=== PATIENT | female | born 1990 | race Caucasian/White ===

== ENCOUNTER 2018-07-06 19:53 | Emergency (ER) | payer OTHER ==
[2018-07-06 20:35] VITALS: BP 135/82
[2018-07-06] MEDS ORDERED: Lidocaine 2% VISCOUS* 15 ML UDC PO ONE (21:24)
[2018-07-06] MEDS ORDERED: Azithromycin TAB* 250 MG PO ONE (21:24)
--- NOTE | 2018-07-06 21:25 | UC ---
General HPI - HPI Summary HPI Summary: sore throat x 3 days R>L. - History of Current Complaint Chief Complaint: UCGeneralIllness Stated Complaint: SORE THROAT Time Seen by Provider: 07/06/18 21:20 Hx Obtained From: Patient Hx Last Menstrual Period: tubes tied Onset/Duration: Gradual Onset Timing: Constant Pain Intensity: 1 Aggravating: swallowing Associated Signs & Symptoms: Negative: Fever, SOB - Allergy/Home Medications Allergies/Adverse Reactions: Allergies Allergy/AdvReac Type Severity Reaction Status Date / Time amoxicillin Allergy Rash Verified 07/06/18 20:25 latex Allergy Rash Verified 07/06/18 20:25 Home Medications: Home Medications SUMAtriptan TAB* [Imitrex TAB*] 25 mg PO SEE INSTRUCTIONS PRN 07/06/18 [History Confirmed 07/06/18] Topiramate [Topamax] 50 mg PO DAILY PRN 07/06/18 [History Confirmed 07/06/18] PMH/Surg Hx/FS Hx/Imm Hx Neurological History: Migraine - Surgical History Surgical History: Yes Surgery Procedure, Year, and Place: , tonsilectomy, tubal - Family History Known Family History: Positive: Non-Contributory - Social History Alcohol Use: None Substance Use Type: None Smoking Status (MU): Current Every Day Smoker Type: Cigarettes Amount Used/How Often: 3-4 cigs/day Length of Time of Smoking/Using Tobacco: 13 yrs When Did the Patient Quit Smoking/Using Tobacco: 3 months ago Review of Systems All Other Systems Reviewed And Are Negative: Yes ENT: Positive: Sore Throat Physical Exam Triage Information Reviewed: Yes Appearance: Well-Appearing Vital Signs: Initial Vital Signs Temp 98.3 F 07/06/18 20:28 Pulse 92 07/06/18 20:28 Resp 18 07/06/18 20:28 BP 135/82 07/06/18 20:28 Pulse Ox 99 07/06/18 20:28 Vital Signs Reviewed: Yes Eyes: Positive: Conjunctiva Clear ENT: Positive: Pharyngeal erythema, TMs normal, Uvula midline. Negative: Nasal congestion, Nasal drainage, Trismus, Muffled voice, Hoarse voice Neck: Positive: Supple, Tenderness @ - peritonsilar nodes which are enlarged Respiratory: Positive: Lungs clear, Normal breath sounds Cardiovascular: Positive: RRR, No Murmur Abdomen Description: Positive: Nontender, No Organomegaly, Soft Bowel Sounds: Positive: Present Musculoskeletal: Positive: ROM Intact Neurological: Positive: Alert Psychological: Positive: Age Appropriate Behavior Skin Exam: Normal Course/Dx - Course Course Of Treatment: rapid strep= positive. - Differential Dx - Multi-Symptom Differential Diagnoses: Other - no concern for abscess. pcn allergy is a ? rash. will tx with zithromax - Diagnoses Provider Diagnosis: Strep throat Discharge - Sign-Out/Discharge Documenting (check all that apply): Patient Departure All imaging exams completed and their final reports reviewed: No Studies - Discharge Plan Condition: Stable Disposition: HOME Prescriptions: Azithromycin 500 mg PO DAILY 5 Days #5 tablet Patient Education Materials: Strep Throat (DC) Referrals: Rand Walsh MD [Primary Care Provider] - 7 Days - Billing Disposition and Condition Condition: STABLE Disposition: Home
== END 2018-07-06 21:43 | disposition home or self-care (01) ==
LOC: UCCORT 19:53
DX: J02.0 Streptococcal pharyngitis (principal); G43.909 Migraine, unspecified, not intractable, without status migrainosus; Z88.0 Allergy status to penicillin; Z91.040 Latex allergy status; F17.210 Nicotine dependence, cigarettes, uncomplicated
CPT/HCPCS: 87651; 99202; A9270-GY; G0463

== ENCOUNTER 2018-08-27 16:44 | Emergency (ER) | payer OTHER ==
[2018-08-27 16:55] VITALS: BP 131/69
--- NOTE | 2018-08-27 17:12 | UC ---
Abdominal Pain Female HPI - HPI Summary HPI Summary: Patient is a 27-year-old female who presents to the urgent care with a chief complaint of having back pain, and increase in vaginal bleeding. She reports that her last menstrual cycle it was on July 27. Therefore, she reports that she is suspecting her menstrual cycle. However, she reports that her vaginal bleeding is more than her usual. Also she reports having the usual back pain for her. She denies any fever, denies any nausea vomiting, diarrhea constipation. She also reports that his no was for . Patient denies any abdominal pain. She has no other complaints - History of Current Complaint Chief Complaint: UCGU Stated Complaint: MENSTRUAL ISSUES Time Seen by Provider: 08/27/18 17:01 Hx Obtained From: Patient Hx Last Menstrual Period: 08/25/18 ?: No Onset/Duration: Sudden Onset Timing: Constant Severity Currently: Moderate Pain Intensity: 4 Allergies/Adverse Reactions: Allergies Allergy/AdvReac Type Severity Reaction Status Date / Time amoxicillin Allergy Rash Verified 08/27/18 16:55 latex Allergy Rash Verified 08/27/18 16:55 Home Medications: Home Medications Acetaminophen TAB* [Tylenol TAB*] 650 mg PO Q4H PRN 08/27/18 [History Confirmed 08/27/18] Ibuprofen TAB* [Motrin TAB* 400 MG] 400 mg PO Q6H PRN 08/27/18 [History Confirmed 08/27/18] PMH/Surg Hx/FS Hx/Imm Hx Previously Healthy: Yes - Surgical History Surgical History: Yes Surgery Procedure, Year, and Place: , tonsilectomy, tubal - Family History Known Family History: Positive: Non-Contributory - Social History Alcohol Use: None Substance Use Type: None Smoking Status (MU): Light Every Day Tobacco Smoker Type: Cigarettes Amount Used/How Often: 3-4 cigs/day Length of Time of Smoking/Using Tobacco: 13 yrs When Did the Patient Quit Smoking/Using Tobacco: 3 months ago Review of Systems All Other Systems Reviewed And Are Negative: Yes Constitutional: Positive: Negative Skin: Positive: Negative Eyes: Positive: Negative ENT: Positive: Negative Respiratory: Positive: Negative Cardiovascular: Positive: Negative Gastrointestinal: Positive: Negative Genitourinary: Positive: Other - vaginal bleeding Motor: Positive: Negative Neurovascular: Positive: Negative Musculoskeletal: Positive: Negative Neurological: Positive: Negative Psychological: Positive: Negative Is Patient Immunocompromised?: No Physical Exam - Summary Physical Exam Summary: VITAL SIGNS: Reviewed. GENERAL: Patient is an obese female who is lying comfortable in the examining table. Patient is not in any acute respiratory distress. HEAD AND FACE: Normocephalic and atraumatic. EYES: PERRLA, EOMI x 2, No injected conjunctiva. EARS: Hearing grossly intact. Ear canals and tympanic membranes are WNL. MOUTH: Oropharynx within normal limits. NECK: Supple, trachea is midline, no adenopathy, no JVD. CHEST: Symmetric, no tenderness at palpation LUNGS: Clear to auscultation bilaterally. No wheezing or crackles. CVS: RRR, S1 and S2 present, no murmurs or gallops appreciated. ABDOMEN: Soft, obese, non-tender. No signs of distention. Positive bowel sounds. No rebound no guarding, and no masses palpated. No abdominal bruit or pulsations. EXTREMITIES: FROM in all major joints, no edema, no cyanosis or clubbing. NEURO: Alert and oriented x 3. No acute neurological deficits. Speech is normal. 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 External genitalia: within normal limits. No rashes, lesions or ecchymosis. Speculum exam: vaginal mendoza with no lesions, masses, or rashes. Cervix normal. No CMTs. No adnexal masses. Positive small amount of blood no vaginal discharge. Vital Signs: Initial Vital Signs Temp 98.4 F 08/27/18 16:50 Pulse 79 08/27/18 16:50 Resp 16 08/27/18 16:50 BP 131/69 08/27/18 16:50 Pulse Ox 100 08/27/18 16:50 Abd Pain Female Course/Dx - Course Course Of Treatment: Urinalysis with Positive nitrates. Therefore the patient has a UTI. The patients vaginal exam doesnt show much of bleeding. She has some bleeding but not significant. The test is also negative. Therefore, the patient given a position for Bactrim and follow up with primary care physician. The patient reports if the symptoms worsen they should return to the emergency department for further workup and management. - Differential Dx/Diagnosis Provider Diagnosis: UTI (urinary tract infection), Menses painful Discharge - Sign-Out/Discharge Documenting (check all that apply): Patient Departure All imaging exams completed and their final reports reviewed: No Studies - Discharge Plan Condition: Stable Disposition: HOME Prescriptions: Sulfamethox/Trimethoprim DS* [Bactrim DS 800/160 TAB*] 1 tab PO BID #14 tab Patient Education Materials: Dysmenorrhea (ED), Urinary Tract Infection in Women (ED) Referrals: Rand Walsh MD [Primary Care Provider] - Additional Instructions: Take medications as instructed Increase your fluid intake F/U with PCP in the next 2-3 days Return to the UC if symptoms worse - Billing Disposition and Condition Condition: STABLE Disposition: Home
== END 2018-08-27 17:30 | disposition home or self-care (01) ==
LOC: UCEAST 16:44
DX: N39.0 Urinary tract infection, site not specified (principal); N94.6 Dysmenorrhea, unspecified; B96.20 Unspecified Escherichia coli [E. coli] as the cause of diseases classified elsewhere; F17.210 Nicotine dependence, cigarettes, uncomplicated
CPT/HCPCS: 81003; 84702; 87077; 87086; 87186; 99212; G0463

== ENCOUNTER 2019-02-16 17:26 | Emergency (ER) | payer OTHER ==
[2019-02-16 17:48] VITALS: BP 152/104
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
[2019-02-16] MEDS ORDERED: Ibuprofen TAB* 600 MG PO ONE (18:38)
--- NOTE | 2019-02-17 12:36 | UC ---
- Progress Note Progress Note: reviewed wet read of hand and wrist xray. No change from wet read, no change in management. Patient Name: TARIQ ARRIOLA Medical Record#: [id number] Ordering Physician: Merly UMANA Acct.#: [id number] : 1990 Age: 28 Sex: F Location: [facility] Exam Date: 02/16/191821 ADM Status: DEP ER Order Information: WRIST RIGHT 3+ VWS Accession Number: [id number] CPT: 09995 INDICATION: Right hand pain. TECHNIQUE: 4 views of the right hand were obtained. FINDINGS: The soft tissues are unremarkable. The bone mineralization is within normal limits. An ossific structure is seen in the proximal carpal arc. Anatomic alignment is maintained. The joint spaces are preserved. IMPRESSION: A 4 mm OSSIFIC STRUCTURE IN THE PROXIMAL CARPAL ARC APPEARS CHRONIC. CORRELATE WITH POINT TENDERNESS. THE HAND IS OTHERWISE UNREMARKABLE. R2 Preliminary Imaging Read R2 <Electronically signed by Samuel Allison MD in OV> 02/17/19728 Dictated By: Samuel Allison MD Dictated Date/Time: 02/17/19726 Transcribed Date/Time: 02/17/19726 Copy to: CC:Merly UMANA; Rand Walsh MD; Jones Carlin MD Imaging - [facility] Imaging [facility] Urgent [facility] [address] [address] ph ([phone]) ph ([phone]) ph ([phone]) This report is only to be considered final once signed by the Provider(s) as displayed in the "<Electronically Signed by >" field (s). Absence of a signature indicates the report is in a draft status and still needs to be finalized. In the event this document was created by someone other than the signing Provider, the individual initiating the document will be listed in the "Entered by:" or "Dictated by:" mane. 1 of 1 Course/Dx - Diagnoses Provider Diagnoses: Acute pain of right wrist, Pain in right hand Discharge ED - Sign-Out/Discharge Documenting (check all that apply): Post-Discharge Follow Up All imaging exams completed and their final reports reviewed: Yes - Discharge Plan Condition: Stable Disposition: HOME Patient Education Materials: Wrist Injury (ED) Referrals: Israrel José MD [Medical Doctor] - If Needed Rand Walsh MD [Primary Care Provider] - If Needed Additional Instructions: As discussed, your radiograph was reviewed by the provider that treated you tonight. It will be read by a radiologist tomorrow morning. If there is a finding other than that discussed with you today, you will receive a call from a care provider. Continue to rest, ice, and wear the wrist splint for pain relief. You may also continue with ibuprofen as directed. Follow up with orthopedics listed below if pain do not resolve. - Billing Disposition and Condition Condition: STABLE Disposition: Home
== END 2019-02-16 19:21 | disposition home or self-care (01) ==
LOC: UCCORT 17:26
DX: M79.641 Pain in right hand (principal); M25.531 Pain in right wrist; S60.211A Contusion of right wrist, initial encounter; M25.421 Effusion, right elbow; H57.89 Other specified disorders of eye and adnexa; S60.221A Contusion of right hand, initial encounter; F17.210 Nicotine dependence, cigarettes, uncomplicated; Z91.040 Latex allergy status; Z88.0 Allergy status to penicillin; Y04.0XXA Assault by unarmed brawl or fight, initial encounter; Y92.9 Unspecified place or not applicable
CPT/HCPCS: 99213; A9270-GY; G0463